=== PATIENT | female | born 1995 | race Caucasian/White ===

== ENCOUNTER 2017-03-29 15:50 | Emergency (ER) | payer BC ==
--- NOTE | 2017-03-29 16:09 | EDM.PDOC ---
ED HPI GENERAL MEDICAL PROBLEM - General Chief Complaint: Headache Stated Complaint: HEAD ACHE Time Seen by Provider: 03/29/17 16:03 - History of Present Illness INITIAL COMMENTS - FREE TEXT/NARRATIVE: HISTORY AND PHYSICAL: History of present illness: Patient's 21-year-old female presented concern of chronic headache is been intermittent 3 months she had episode today which he passed out that she had her head and presents now with headache and neck pain this combination of symptoms is been somewhat intermittent she is yet to secure follow-up she has been seen one time in the past diagnosis of migraine headaches. She's also been treated for anxiety. Review of systems: As per history of present illness and below otherwise all systems reviewed and negative. Past medical history: As per history of present illness and as reviewed below otherwise noncontributory. Surgical history: As per history of present illness and as reviewed below otherwise noncontributory. Social history: No reported history of drug or alcohol abuse. Family history: As per history of present illness and as reviewed below otherwise noncontributory. Physical exam: HEENT: Atraumatic, normocephalic, pupils reactive, negative for conjunctival pallor or scleral icterus, mucous membranes moist, throat clear, neck supple, nontender, trachea midline. Lungs: Clear to auscultation, breath sounds equal bilaterally, chest nontender. Heart: S1S2, regular, negative for clicks, rubs, or JVD. Abdomen: Soft, nondistended, nontender. Negative for masses or hepatosplenomegaly. Negative for costovertebral tenderness. Pelvis: Stable nontender. Genitourinary: Deferred. Rectal: Deferred. Extremities: Atraumatic, negative for cords or calf pain. Neurovascular unremarkable. Neuro: Awake, alert, oriented. Cranial nerves II through XII unremarkable. Cerebellum unremarkable. Motor and sensory unremarkable throughout. Exam nonfocal. Diagnostics: CT brain C-spine Therapeutics: To be determined Impression: #1 chronic intermittent headache #2 history of migraine #3 syncope #4 cervical strain Definitive disposition and diagnosis as appropriate pending reevaluation and review of above. ED ROS GENERAL - Review of Systems Review Of Systems: ROS reveals no pertinent complaints other than HPI. ED EXAM, GENERAL - Physical Exam Exam: See Below (See dictation) Departure - Departure Time of Disposition: 16:08 Disposition: Home, Self-Care 01 Condition: Good Clinical Impression: Migraine, Head injury, Syncope, Anxiety - Discharge Information Forms: ED Department Discharge Additional Instructions: The following information is given to patients seen in the emergency department who are being discharged to home. This information is to outline your options for follow-up care. We provide all patients seen in our emergency department with a follow-up referral. The need for follow-up, as well as the timing and circumstances, are variable depending upon the specifics of your emergency department visit. If you don't have a primary care physician on staff, we will provide you with a referral. We always advise you to contact your personal physician following an emergency department visit to inform them of the circumstance of the visit and for follow-up with them and/or the need for any referrals to a consulting specialist. The emergency department will also refer you to a specialist when appropriate. This referral assures that you have the opportunity for followup care with a specialist. All of these measure are taken in an effort to provide you with optimal care, which includes your followup. Under all circumstances we always encourage you to contact your private physician who remains a resource for coordinating your care. When calling for followup care, please make the office aware that this follow-up is from your recent emergency room visit. If for any reason you are refused follow-up, please contact the [facility] emergency department at and asked to speak to the emergency department charge nurse. [facility] [place] [id number] [facility]ty [facility] - Neurology Professional Building [address] [place] [address], [address] [place] [address] Follow-up primary care/neurology as discussed call to schedule appointment Motrin or Tylenol as directed return as needed as discussed
[2017-03-29 18:04] VITALS: BP 132/87
--- NOTE | 2017-03-30 16:12 | CT ---
EXAM DATE: 03/29/17 PATIENT'S AGE: 21 Patient: ANGEL ROBERT Facility: [place], [place] Site . Site : 1995 Study: CT Head [id number]/20/2017 5:16:31 PM Ordering Physician: Darwin Perry Final Report: INDICATION: Loss of consciousness upon getting out of bed today. TECHNIQUE: Scanning of the head was performed without IV contrast material. Coronal and sagittal reconstructions were obtained. COMPARISON: None. FINDINGS: No acute hemorrhage, parenchymal attenuation abnormality, or mass effect is demonstrated. Differentiation between the cherry matter and white matter is preserved. The ventricles and other subarachnoid spaces are within normal limits. No calvarial abnormality is evident. Mucus is noted in the right sphenoid sinus. The other visualized paranasal and mastoid sinuses are clear. Moderate leftward deviation of the nasal septum is noted. IMPRESSION: 1. Negative noncontrast head CT. 2. Mucous in the right sphenoid sinus. 3. Moderate leftward deviation of the nasal septum. Please note that all CT scans at this facility use dose modulation, iterative reconstruction, and/or weight-based dosing when appropriate to reduce radiation dose to as low as reasonably achievable. Dictated by Fercho Langley MD @ Mar 29 2017 5:33PM (Electronic Signature) Report Signed by Proxy. IRAMD
--- NOTE | 2017-03-30 16:12 | CT ---
EXAM DATE: 03/29/17 PATIENT'S AGE: 21 Patient: ANGEL ROBERT Facility: [place], [place] Site . Site : 1995 Study: CT Spine Cervical [id number]/20/2017 5:12:39 PM Ordering Physician: Darwin Perry Final Report: INDICATION: Stood up from bed and fainted. Neck injury. TECHNIQUE: Volumetric helical scanning of the cervical spine was performed without contrast material. Sagittal and coronal reconstructions were also obtained. COMPARISON: None. FINDINGS: No fracture, subluxation or prevertebral soft tissue swelling is demonstrated. No curvature abnormality, disc space narrowing, or other abnormality is evident. IMPRESSION: Negative CT of the cervical spine. Please note that all CT scans at this facility use dose modulation, iterative reconstruction, and/or weight-based dosing when appropriate to reduce radiation dose to as low as reasonably achievable. Dictated by Fercho Langley MD @ Mar 29 2017 5:33PM (Electronic Signature) Report Signed by Proxy. MTDD
== END 2017-03-29 18:30 | disposition home or self-care (01) ==
LOC: MW.ED 15:50
DX: R55 Syncope and collapse (principal); S16.1XXA Strain of muscle, fascia and tendon at neck level, initial encounter; S09.90XA Unspecified injury of head, initial encounter; G43.909 Migraine, unspecified, not intractable, without status migrainosus; X58.XXXA Exposure to other specified factors, initial encounter
CPT/HCPCS: 70450; 70450-26; 72125; 72125-26; 81025; 99282; 99284-25